=== PATIENT | female | born 1935 | race Caucasian/White ===

== ENCOUNTER 2017-08-25 07:48 | Emergency (ER) | payer MEDICARE, OTHER ==
[~2017-08-25] VITALS: Ht 167.6 cm; Wt 74.8 kg
[2017-08-25 07:58] VITALS: BP 112/70
[2017-08-25] MEDS ORDERED: ACETAMINOPHEN 325 MG TABLET ONE (08:02)
[2017-08-25] MEDS ORDERED: ACETAMINOPHEN 325 MG TABLET PO ONE (08:30)
== END 2017-08-25 08:40 | disposition home or self-care (01) ==
LOC: ER 07:49
DX: S69.91XA Unspecified injury of right wrist, hand and finger(s), initial encounter (principal); I10 Essential (primary) hypertension; J18.9 Pneumonia, unspecified organism; Y95 Nosocomial condition; W01.0XXA Fall on same level from slipping, tripping and stumbling without subsequent striking against object, initial encounter; Y93.89 Activity, other specified; Y92.89 Other specified places as the place of occurrence of the external cause; Y99.8 Other external cause status
CPT/HCPCS: 73110; A4606; Z7610